=== PATIENT | female | born 1995 | race Caucasian/White ===

== ENCOUNTER 2018-03-19 19:18 | Outpatient (CLI) | payer MEDICAID ==
[2018-03-19 20:12] LABS: APPEARANCE,URINE SLIGHTLY-CLOUDY; BILIRUBIN,URINE NEGATIVE (NEGATIVE); COLOR,URINE YELLOW; GLUCOSE, URINE 50 mg/dL (NEGATIVE); KETONES,URINE NEGATIVE (NEGATIVE); LEUKOCYTE ESTERASE,URINE NEGATIVE (NEGATIVE); NITRITE,URINE NEGATIVE (NEGATIVE); PROTEIN,URINE NEGATIVE (NEGATIVE); URINE SPECIFIC GRAVITY 1.019; UROBILINOGEN,URINE NEGATIVE mg/dL (<2.0)
[2018-03-19 20:47] LABS: URINE AMPHETAMINES SCREEN NEGATIVE; URINE BARBITURATES SCREEN NEGATIVE; URINE BENZODIAZEPINES SCREEN NEGATIVE; URINE COCAINE SCREEN NEGATIVE; URINE MARIJUANA (THC) SCREEN NEGATIVE; URINE METHADONE SCREEN NEGATIVE; URINE PHENCYCLIDINE SCREEN NEGATIVE
--- NOTE | 2018-03-19 21:12 | RADIOLOGY REPORT (SQ) ---
EXAM DESCRIPTION: 3 views of the left ankle CLINICAL HISTORY: 23 years, Female, pt fell is and hurt ankle R/O fx COMPARISON: None. FINDINGS: There is no acute fracture or dislocation. There is anterior and lateral soft tissues swelling. There is no joint effusion. The bony alignment is normal. Limited evaluation of the distal tibia/ fibula demonstrate no gross abnormalities. The talus, calcaneus, tarsal, and metatarsal bones are grossly normal in appearance. The intertarsal, tarsometatarsal, and visualized metatarsophalangeal joints are grossly normal in appearance. IMPRESSION: 1. No acute fracture or dislocation. 2. Anterolateral soft tissue swelling.
--- NOTE | 2018-03-19 22:09 | RADIOLOGY REPORT (SQ) ---
EXAM DESCRIPTION: Obstetric ultrasound March 19, 2018 CLINICAL HISTORY: 23 years, Female, S/P Fall, abd pain/spotting COMPARISON: None Available. TECHNIQUE: Utilizing a curved array transducer, real-time ultrasound evaluation of the gravid uterus was performed. Color Doppler imaging was used to assess vascular flow. FINDINGS: There is a single intrauterine . The placenta is posterior positioned. The fetus is in cephalic position. The cervical length is 3.2 cm The heart rate is 143 bpm. The biparietal diameter is 6.88 cm (estimated gestational age 27 weeks 5 day). The head circumference is 25.15 cm (estimated gestational age 27 weeks 2 day). The abdominal circumference is 23.61 cm (estimated gestational age 27 weeks 6 day). The femur length 5.18 cm (estimated gestational age 27 weeks 5 day). The amniotic fluid index is 4.78 cm (4.78, 0.0, 0.0, 0.0). FL/AC 21.9 FL/BPD 75.3 HC/AC 1.07 FL/HC 20.6 The estimated weight is 1122 +/- 166 grams The cranium, cerebral ventricles, and posterior fossa normal. The spine is normal. The 4 chamber view of the heart is normal. The heart rate is 143 beats per minute. The abdominal viscera are normal. There is a 3 vessel cord. The cord insertion is normal. LMP: September 16, 2017 Gestational Age by LMP: 26 weeks 2 days Due Date by LMP: June 23, 2018 Gestational Age by US: 27 weeks 5 days Due Date by US: June 13, 2018 The maternal ovaries and adnexal structures are not well evaluated on this examination. IMPRESSION: 1. Single intrauterine with estimated gestational age of 27 weeks and 5 days. 2. Cephalic presentation with posterior placenta. 3. Normal amniotic fluid volume with closed cervix. 4. Grossly normal anatomy on the limited provided images. 5. Estimated weight 1122 +/- 166 g.
== END 2018-03-19 22:22 | disposition home or self-care (01) ==
LOC: LC 19:18
PROVIDERS: ATTEND Obstetrics & Gynecology
DX: Z34.92 Encounter for supervision of normal pregnancy, unspecified, second trimester (principal)
CPT/HCPCS: 76805; 80307; 81001; 93976